=== PATIENT | female | born 1960 | race African-American/Black ===

== ENCOUNTER 2016-12-23 08:51 | Emergency (ER) | payer SELFPAY ==
[2016-12-23 08:58] VITALS: BP 169/102
[2016-12-23] MEDS ORDERED: KETOROLAC TROMETHAMINE 60 MG/2 ML SDV IM ONE (09:34)
--- NOTE | 2016-12-23 09:38 | ER Document Report ---
ED Extremity Problem, Upper - General Chief Complaint: Arm Pain Stated Complaint: ARM PAIN Time Seen by Provider: 12/23/16 09:23 Notes: 56 yo female c/o pain to right shoulder x 4 days. pain started the day after she was pushing her granddaughter up a hill on her bike. no trauma. pt has progressively worsened. aggrevated with any movement. TRAVEL OUTSIDE OF THE [place] IN LAST 30 DAYS: No - HPI Patient complains to provider of: Pain Recent injury: No Quality of pain: Burning, Sharp Arm and Shoulder (Right): 1 - pain Associated symptoms: None Exacerbated by: Movement Relieved by: Nothing Similar symptoms previously: No Recently seen / treated by doctor: No - Related Data Allergies/Adverse Reactions: No Known Allergies Allergy (Verified 12/23/16 08:55) Past Medical History - General Information source: Patient - Social History Smoking Status: Never Smoker Cigarette use (# per day): No Chew tobacco use (# tins/day): No Drug Abuse: None Lives with: Family Family History: Reviewed & Not Pertinent - Past Medical History Cardiac Medical History: Reports: Hx Hypercholesterolemia, Hx Hypertension Endocrine Medical History: Reports: Hx Diabetes Mellitus Type 1 Renal/ Medical History: Denies: Hx Peritoneal Dialysis Surgical Hx: Negative - Immunizations Hx Diphtheria, Pertussis, Tetanus Vaccination: No Review of Systems - Review of Systems Constitutional: No symptoms reported EENT: No symptoms reported Cardiovascular: No symptoms reported Respiratory: No symptoms reported Gastrointestinal: No symptoms reported Genitourinary: No symptoms reported Female Genitourinary: No symptoms reported Musculoskeletal: See HPI Skin: No symptoms reported Hematologic/Lymphatic: No symptoms reported Neurological/Psychological: No symptoms reported Physical Exam - Vital signs Vitals: Temp Pulse Resp BP Pulse Ox 99.1 F 113 H 16 169/102 H 96 12/23/16 08:55 12/23/16 08:55 12/23/16 08:55 12/23/16 08:55 12/23/16 08:55 Interpretation: Hypertensive - General General appearance: Appears well, Alert - HEENT Head: Normocephalic, Atraumatic Eyes: Normal Pupils: PERRL - Respiratory Respiratory status: No respiratory distress Chest status: Nontender Breath sounds: Normal Chest palpation: Normal - Cardiovascular Rhythm: Regular Heart sounds: Normal auscultation Murmur: No - Abdominal Inspection: Normal Distension: No distension Bowel sounds: Normal Tenderness: Nontender Organomegaly: No organomegaly - Back Back: Normal, Nontender - Extremities General lower extremity: Normal inspection, Nontender, Normal color, Normal ROM , Normal temperature, Normal weight bearing. No: Tammi's sign Shoulder: Tender - there is tenderness directly over the right bursa, with pain elicited by any active motion, passive motion more tolerable. no pain at rest. no redness, warmth or swelling. distal SMC intact - Neurological Neuro grossly intact: Yes Cognition: Normal Orientation: AAOx4 [place] Coma Scale Eye Opening: Spontaneous Roxanne Coma Scale Verbal: Oriented [place] Coma Scale Motor: Obeys Commands Roxanne Coma Scale Total: 15 Speech: Normal Motor strength normal: LUE, RUE, LLE, RLE Sensory: Normal - Psychological Associated symptoms: Normal affect, Normal mood - Skin Skin Temperature: Warm Skin Moisture: Dry Skin Color: Normal Course - Re-evaluation Re-evalutation: 12/23/16 09:47 pt's H&P is c/w with an inflammatory process within her shoulder capsule. low suspicion for cardiac or pulmonary involvement. pt's BP is elevated today, she does have hx/o HTN which is usually controlled but she admits the pain is most likely driving the BP higher. she denies any ALFONSO, n/v, chest pain or shortness of breath. pt is stable for discharge and follow up with primary care or orthopedist if pain persists. pt is agreeable with plan and stable for discharge - Vital Signs Vital signs: Temp Pulse Resp BP Pulse Ox 99.1 F 113 H 16 169/102 H 96 12/23/16 08:55 12/23/16 08:55 12/23/16 08:55 12/23/16 08:55 12/23/16 08:55 Discharge - Discharge Clinical Impression: Right shoulder pain Qualifiers: Chronicity: acute Qualified Code(s): M25.511 - Pain in right shoulder Condition: Stable Disposition: HOME, SELF-CARE Instructions: Bursitis ([facility]), Ibuprofen (General) ([facility]), Ice Packs ([facility]), Muscle Relaxers ([facility]), Warm Packs ([facility]) Additional Instructions: Your shoulder pain is most likely caused from an inflammatory process within the shoulder bursa take medications as prescribed please follow up with your primary care if pain persists or worsens Prescriptions: Ibuprofen [Motrin 800 Mg Tablet] 800 mg PO Q6H #20 tablet Methocarbamol [Robaxin 500 Mg Tablet] 1,000 mg PO Q6 #30 tablet Tramadol HCl [Ultram 50 mg Tablet] 50 mg PO ASDIR PRN #20 tablet PRN Reason:
== END 2016-12-23 09:54 | disposition home or self-care (01) ==
LOC: ER 08:51
DX: M25.511 Pain in right shoulder (principal); E10.9 Type 1 diabetes mellitus without complications; I10 Essential (primary) hypertension
CPT/HCPCS: 99283; 96372; J1885